=== PATIENT | female | born 1960 | race Caucasian/White ===

== ENCOUNTER 2019-11-02 08:19 | Day surgery (SDC) | payer OTHER ==
[2019-10-30 10:33] LABS: CARBON DIOXIDE,CO2 28.6 mmol/L (21.0-32.0); POTASSIUM,K 4.1 mmol/L (3.5-5.1)
[~2019-11-02 08:19] MED LIST: Dexamethasone 4 MG/ML 5 ML MDV ONE; Lactated Ringers 1,000 ML IV SCH; Lidocaine 2% 100 MG/5 ML Syringe ONE; Midazolam 1 MG/ML 2 ML SDV ONE; Ondansetron 4 MG/2 ML SDV ONE; Propofol 200 MG/20 ML SDV ONE; fentaNYL 250 MCG/5 ML SDV ONE
--- NOTE | 2019-11-02 09:07 | PCM.PREANE ---
Preanesthetic Assessment - Anesthesia/Transfusion/Family Hx Anesthesia History: Prior Anesthesia Without Reaction Family History of Anesthesia Reaction: No Transfusion History: No Prior Transfusion(s) - Review of Systems General: No Symptoms Pulmonary: No Symptoms Cardiovascular: No Symptoms Gastrointestinal: No Symptoms Neurological: No Symptoms Other: Reports: None - Physical Assessment NPO Status Date: 11/01/19 Height: 5 ft 3 in Weight: 72.121 kg ASA Class: 2 Mental Status: Alert & Oriented x3 Airway Class: Mallampati = 2 Dentition: Reports: Normal Dentition ROM/Head Extension: Full Lungs: Clear to Auscultation, Normal Respiratory Effort Cardiovascular: Regular Rate, Regular Rhythm - Lab Values: Laboratory Last Values WBC 6.14 K/uL (4.0-11.0) 10/30/19 09:45 RBC 4.42 M/uL (4.30-5.90) 10/30/19 09:45 Hgb 13.5 g/dL (12.0-16.0) 10/30/19 09:45 Hct 41.6 % (36.0-46.0) 10/30/19 09:45 MCV 94.1 fL (80.0-98.0) 10/30/19 09:45 MCH 30.5 pg (27.0-32.0) 10/30/19 09:45 MCHC 32.5 g/dL (31.0-37.0) 10/30/19 09:45 RDW Std Deviation 45.8 fl (28.0-62.0) 10/30/19 09:45 RDW Coeff of Yovani 13 % (11.0-15.0) 10/30/19 09:45 Plt Count 306 K/uL (150-400) 10/30/19 09:45 MPV 9.40 fL (7.40-12.00) 10/30/19 09:45 Nucleated RBC % 0.0 /100WBC 10/30/19 09:45 Nucleated RBCs # 0 K/uL 10/30/19 09:45 Sodium 140 mmol/L (136-145) 10/30/19 09:45 Potassium 4.1 mmol/L (3.5-5.1) 10/30/19 09:45 Chloride 104 mmol/L (98-107) 10/30/19 09:45 Carbon Dioxide 28.6 mmol/L (21.0-32.0) 10/30/19 09:45 BUN 23 mg/dL (7.0-18.0) H 10/30/19 09:45 Creatinine 1.0 mg/dL (0.6-1.0) 10/30/19 09:45 Est Cr Clr Drug Dosing 49.49 mL/min 10/30/19 09:45 Estimated GFR (MDRD) 56.6 ml/min 10/30/19 09:45 Glucose 81 mg/dL (74-106) 10/30/19 09:45 Calcium 9.0 mg/dL (8.5-10.1) 10/30/19 09:45 Hep C Ab Index (EFREM) 0.02 INDEX (<0.8) 10/30/19 09:45 Blood Type A POSITIVE 10/30/19 09:47 Antibody Screen NEGATIVE 10/30/19 09:47 - Allergies Allergies/Adverse Reactions: Allergies Allergy/AdvReac Type Severity Reaction Status Date / Time amoxicillin [Amoxicillin] Allergy Redness Verified 10/28/19 10:03 Sulfa (Sulfonamide Allergy Cannot Verified 10/28/19 10:03 Antibiotics) Remember - Blood Blood Available: No - Anesthesia Plan Pre-Op Medication Ordered: None - Acknowledgements Anesthesia Type Planned: General Anesthesia Pt an Appropriate Candidate for the Planned Anesthesia: Yes Alternatives and Risks of Anesthesia Discussed w Pt/Guardian: Yes Pt/Guardian Understands and Agrees with Anesthesia Plan: Yes Additional Comments: PMH: gerd, asthma, htn PLAN: ga PreAnesthesia Questionnaire HEENT History: Reports: Allergic Rhinitis Other HEENT History: wears glasses Cardiovascular History: Reports: High Cholesterol, Hypertension, Other (See Below) Other Cardiovascular History: states she has been told she has a "normal heart murmur" Respiratory History: Reports: Asthma Gastrointestinal History: Reports: GERD Genitourinary History: Reports: None MANAGER TITLE History: Reports: Musculoskeletal History: Reports: None Neurological History: Reports: None Psychiatric History: Reports: Anxiety, Depression Endocrine/Metabolic History: Reports: None Hematologic History: Reports: None Immunologic History: Reports: None Oncologic (Cancer) History: Reports: None Dermatologic History: Reports: None - Past Surgical History Head Surgeries/Procedures: Reports: None HEENT Surgical History: Reports: None Cardiovascular Surgical History: Reports: None Respiratory Surgical History: Reports: None GI Surgical History: Reports: Cholecystectomy, Hernia, Abdominal Female Surgical History: Reports: Breast Biopsy, Other (See Below) Other Female Surgeries/Procedures: hysteroscopy Endocrine Surgical History: Reports: Other (See Below) Other Endocrine Surgeries/Procedures: cyst removed from thyroid Neurological Surgical History: Reports: None Musculoskeletal Surgical History: Reports: Carpal Tunnel Oncologic Surgical History: Reports: None Dermatological Surgical History: Reports: None - SUBSTANCE USE Smoking Status *Q: Never Smoker Recreational Drug Use History: No - HOME MEDS Home Medications: Home Meds Calcium Carbonate [Calcium] 1 tab PO ASDIRECTED 11/23/13 [History] Fluticasone Propionate [Flonase] 1 spray INH DAILY PRN 11/23/13 [History] Multivitamin [Multi-Vitamin Daily] 1 tab PO DAILY 11/23/13 [History] Albuterol [Ventolin HFA] 2 puff INH ASDIRECTED PRN 10/28/19 [History] Cetirizine [ZyrTEC] 1 tab PO DAILY 10/28/19 [History] Flaxseed Oil [Flax Oil] 1 tab PO DAILY 10/28/19 [History] Fluticasone/Vilanterol [Breo Ellipta 100-25 MCG Inhalation Kit] 1 inhalation INH DAILY 10/28/19 [History] Montelukast [Singulair] 10 mg PO ASDIRECTED PRN 10/28/19 [History] Omeprazole Magnesium [Prilosec Otc] 1 tab PO ASDIRECTED PRN 10/28/19 [History] Rosuvastatin Calcium 5 mg PO DAILY 10/28/19 [History] Sertraline HCl 100 mg PO DAILY 10/28/19 [History] Sodium Bicarbonate/Sod Citrat [Randi-[place] Heartburn Tab Eff] 1 tab.chew CHEW ASDIRECTED PRN 10/28/19 [History] Vit A and D3 in Cod Liver Oil [Cod Liver Oil Softgel] 1 tab PO DAILY 10/28/19 [History] busPIRone HCl [Buspirone HCl] 0.5 tab PO BID 10/28/19 [History] - CURRENT (IN HOUSE) MEDS Current Meds: Current Medications Lactated Ringer's (Ringers, Lactated) 1,000 mls @ 100 mls/hr IV ASDIRECTED DIONTE Discontinued Medications Dexamethasone (Dexamethasone) Confirm Administered Dose 20 mg .ROUTE .STK-MED ONE Stop: 11/02/19 06:54 Fentanyl (Sublimaze) Confirm Administered Dose 250 mcg .ROUTE .STK-MED ONE Stop: 11/02/19 06:56 Lidocaine HCl (Xylocaine 2%) Confirm Administered Dose 100 mg .ROUTE .STK-MED ONE Stop: 11/02/19 06:54 Midazolam HCl (Versed 1 Mg/Ml) Confirm Administered Dose 2 mg .ROUTE .STK-MED ONE Stop: 11/02/19 06:54 Ondansetron HCl (Zofran) Confirm Administered Dose 4 mg .ROUTE .STK-MED ONE Stop: 11/02/19 06:54 Propofol (Diprivan 20 Ml) Confirm Administered Dose 200 mg .ROUTE .STK-MED ONE Stop: 11/02/19 06:54
[2019-11-02] MEDS ORDERED: Scopolamine 1.5 MG Transdermal Patch TRDERM PRN (09:10)
[2019-11-02] MEDS ORDERED: Fluorescein 5 ML Vial ONE (09:42)
[2019-11-02] MEDS ORDERED: Sugammadex Sodium 200 MG/2 ML VIAL ONE (10:23)
[2019-11-02] MEDS ORDERED: Ketamine 500 mg/10 ML MDV ONE (10:28)
[2019-11-02] MEDS ORDERED: Furosemide 40 MG/4 ML VIAL ONE (10:48)
[2019-11-02] MEDS ORDERED: Ondansetron 4 MG/2 ML SDV ONE (11:07)
[2019-11-02] MEDS ORDERED: fentaNYL 250 MCG/5 ML SDV ONE (11:07)
[2019-11-02] MEDS ORDERED: Ketorolac 30 MG/ML SDV ONE (11:07)
--- NOTE | 2019-11-02 12:38 | PCM.OPNOTE ---
- General Post-Op/Procedure Note Date of Surgery/Procedure: 11/02/19 Operative Procedure(s): total vaginal hysterectomy, anterior and posterior colporrhaphy, perineorrhaphy and vaginal vault suspension, cystoscopy Findings: 4th Degree uterine prolapse, 3rd degree rectocele, 3rd degree cystocele, on cystoscopy, normal bladder mucosa, copious flow of urine, bilateral ureteral orifices. Rectal exam normal at conclusion of the case. Pre Op Diagnosis: incomplete uterovaginal prolapse Post-Op Diagnosis: Same Anesthesia Technique: General ET Tube Primary Surgeon: Paradise Jeffries Secondary Surgeon: Carolyn Ruiz Anesthesia Provider: Mick Levin [employer] Worker: Lionel Ron Pathology: uterus and vaginal Fluid Replacement, Intraop: 2,000 EBL in mLs: 150 Complications: None Known Condition: Good
[2019-11-02] MEDS ORDERED: Ondansetron 4 MG/2 ML SDV IVPUSH PRN (12:39)
[2019-11-02] MEDS ORDERED: Ketorolac 30 MG/ML SDV IVPUSH PRN (12:39)
[2019-11-02] MEDS ORDERED: Acetaminophen/oxyCODONE 325-5 MG Tab PO PRN ×2 (12:39)
[2019-11-02] MEDS ORDERED: Promethazine 25 MG/ML SDV IM PRN (12:39)
[2019-11-02] MEDS ORDERED: Morphine 4 MG/ML Syringe IVPUSH PRN (12:39)
[2019-11-02] MEDS ORDERED: Non-Formulary Medication 1 Each (Montelukast [Singulair] 10 MG) PO PRN (12:41)
[2019-11-02] MEDS ORDERED: Non-Formulary Medication 1 Each (Fluticasone Propionate [Flonase] 1 SPRAY) INH PRN (12:41)
--- NOTE | 2019-11-02 15:29 | OR ---
SURGEON: Paradise Jeffries M.D. DATE OF PROCEDURE: 11/02/2019 PREOPERATIVE DIAGNOSIS: Incomplete uterovaginal prolapse. POSTOPERATIVE DIAGNOSIS: Incomplete uterovaginal prolapse. PROCEDURES: Total vaginal hysterectomy, anterior and posterior colporrhaphy, perineorrhaphy, vaginal vault suspension, cystoscopy. PRIMARY SURGEON: Paradise Jeffries MD. WEATHER STRIP INSTALLER: Carolyn Ruiz MD. ANESTHESIA: General endotracheal. ESTIMATED BLOOD LOSS: 150 mL. FLUIDS: 2000 mL crystalloid. FINDINGS: Uterus with fourth-degree prolapse, third-degree cystocele, third-degree rectocele. Upon cystoscopy, there was copious flow of bright green urine after fluorescein had been given from bilateral ureteral orifices. There was no evidence of any trauma to the bladder mucosa. Rectal examination at the conclusion of the case revealed no trauma and no sutures in the rectum. COMPLICATIONS: None known. DISPOSITION: Stable to Recovery. BRIEF HISTORY: This is a 59-year-old female. She was seen in July and was noted to have second to third-degree uterovaginal prolapse. It was discussed at the time of her appointment. In the meantime, she also noted some postmenopausal bleeding, but endometrial thickness was 3 mm. She has had several episodes of pain in her lower abdomen. She describes it as a twisting sensation. She now feels like the prolapse has gotten significantly worse with more pelvic pressure and pain and presented for further evaluation with findings as noted above. She was offered but declined a pessary. She requested definitive management with a total vaginal hysterectomy, anterior and posterior colporrhaphy, perineorrhaphy, vaginal vault suspension, and cystoscopy. Risks reviewed including bleeding; infection; injury to bowel, bladder, blood vessels, ureters, or other organs; risk of anesthesia; risk of thromboembolic event; risk of change in sexual function; risk of recurrence of 30% to 40%. Understanding all these risks, she does desire to proceed. DESCRIPTION OF PROCEDURE: With the patient in dorsal lithotomy position, under adequate general endotracheal anesthesia, the perineum and vagina were prepped with Betadine and draped in usual fashion for vaginal surgery. SCDs were in place. Gallardo catheter had been placed and she received 2 g of Ancef IV. After appropriate time-out was held and after the perineum was appropriately prepped and draped, bimanual examination revealed a 6-week size uterus with the cervix being at the introitus and just beyond third-degree cystocele, third-degree rectocele. Speculums were not required to start the case as the uterus was external. The cervix was grasped with a Claudia tenaculum and circumscribed using electrocautery. The vaginal mucosa was pushed away. Dissection was begun in the anterior cul-de-sac and progressing approximately 3 cm cephalad on the cervix. I had not yet been to the level of the peritoneal reflection. Therefore, I proceeded to attempt to enter the posterior cul-de-sac, again proceeding approximately 3 cm cephalad, still had not entered the peritoneum, and therefore the uterosacral ligaments were identified, cross clamped, cut, and ligated using a Maggi ligature of 2-0 Polysorb. An additional pedicles was taken on the right and the left, which was below the field of dissection and these were clamped with a Maggi clamp, cut, and ligated with a Maggi ligature of 2-0 Polysorb. The posterior cul-de-sac was then easily entered. A Fabio- Auvard speculum was placed posteriorly, a finger was placed anteriorly to guide the dissection to the anterior cul-de-sac. When the finger was brought down into the view, the peritoneum was identified and incised. The right angle retractor was then placed into the anterior cul-de-sac. Two additional pedicles were taken on the right and the left using a Maggi ligature, cutting, and 2-0 Polysorb in a Maggi ligature for ligating the pedicle. The remaining utero- ovarian ligaments were then cross-clamped, cut, and ligated using a free tie followed by Maggi ligature of 2-0 Polysorb. The uterus was delivered vaginally, sent for pathology. The tubes and ovaries were inspected and appeared normal and were released from the retained ligatures. The uterosacral ligament ligatures were retained as well. The lower portion of the anterior vagina had good rugation, so beginning approximately 3 cm cephalad from the urethral meatus, hydrodissection was performed. A midline incision was made. The vaginal mucosa was incised using Metzenbaum scissors. The muscularis layer was dissected free from the overlying vaginal mucosa and reapproximated in midline using multiple interrupted sutures of 2-0 Polysorb. Prior to proceeding with the anterior repair, cystoscopy was performed after the uterus had been removed identifying bilateral ureteral orifices with copious flow of urine which was bright green after fluorescein had been given. There was also no evidence of any trauma to the bladder mucosa. This being completed, I proceeded with the anterior colporrhaphy as described. The uterosacral ligaments were then identified, grasped with a Josh clamp and tacking the bowel out of the field and retracting the sigmoid, 3 sutures of 2-0 Ethibond were placed in the uterosacral ligaments on the right and the left. A single tie was placed and cystoscopy was again repeated and there was copious flow of bright green urine from bilateral ureteral orifices again with no trauma to the bladder mucosa. Therefore, the cystoscope was removed, the catheter was replaced. The ligatures were retained for placement into the muscularis layer. I then proceeded with the posterior colporrhaphy, proceeding with a slick-shaped incision in the perineum starting at the 5 and 7 o'clock positions of the perineum. This vulvar tissue and lower vaginal tissue were removed using Metzenbaum scissors. Hydrodissection was then performed posteriorly. A midline incision was made with Metzenbaum scissors undermining the vaginal mucosa to the apex. The muscularis layer was then dissected free. There was a very clear transverse defect in the muscularis layer and this was repaired using a running suture of 2- 0 Polysorb. This was really the source of the posterior defect; therefore, there were no lateral sutures placed. The retained ligatures that had been placed in the uterosacral ligaments were then placed through the upper portion of the muscularis layer of the posterior vagina at the apex and the other arm of each suture was placed through the muscularis layer of the apex anteriorly with the highest ligature being placed in the midline and the lowest being placed laterally. These ligatures were each tied and trimmed. The vaginal mucosa was then reapproximated using a running lock suture of 0 Polysorb. The retained uterosacral ligament ligatures were ligated in the midline beneath this closure which progressed to the perineum. The deep perineal tissue was then reapproximated in the midline using a deep suture of the 0 Polysorb with reapproximation of the skin occurring in this process. The suture was then trimmed. The vagina was packed with vaginal packing instilled with water-based lubricant. Final sponge, needle, and instrument counts were reported as correct. There were no known complications. The patient was transferred to Recovery in good condition. CHRISTIANO FRIAS /[id number]
[2019-11-02] MEDS ORDERED: Albuterol 0.083% 2.5 MG/3 ML Neb Soln NEB PRN (16:07)
--- NOTE | 2019-11-02 16:16 | PCM.SURGPN ---
- General Info Date of Service: 11/02/19 POD#: 0 Post-Op Diagnosis: incomplete uterovaginal prolapse. Functional Status: Reports: Pain Controlled - Review of Systems General: Reports: No Symptoms HEENT: Reports: No Symptoms Pulmonary: Reports: No Symptoms Cardiovascular: Reports: No Symptoms Gastrointestinal: Reports: No Symptoms Genitourinary: Reports: No Symptoms Musculoskeletal: Reports: No Symptoms Skin: Reports: No Symptoms Neurological: Reports: No Symptoms Psychiatric: Reports: No Symptoms - Patient Data Vitals - Most Recent: Last Vital Signs Temp 36.5 C 11/02/19 15:51 Pulse 63 11/02/19 15:51 Resp 16 11/02/19 15:51 BP 135/64 11/02/19 15:51 Pulse Ox 100 11/02/19 15:51 Weight - Most Recent: 72.121 kg I&O - Last 24 Hours: Intake & Output 11/02/19 11/02/19 11/02/19 06:59 14:59 22:59 Intake Total 4300 Output Total 400 Balance 3900 Med Orders - Current: Current Medications Albuterol (Proventil Neb Soln) 2.5 mg NEB Q4HRRT PRN PRN Reason: Shortness of Breath Lactated Ringer's (Ringers, Lactated) 1,000 mls @ 100 mls/hr IV ASDIRECTED DIONTE Last Admin: 11/02/19 09:07 Dose: 100 mls/hr Documented by: Ketorolac Tromethamine (Toradol) 30 mg IVPUSH Q6H PRN PRN Reason: Pain (severe 7-10) Stop: 11/07/19 12:39 Morphine Sulfate (Morphine) 4 mg IVPUSH Q2H PRN PRN Reason: Pain (severe 7-10) Non-Formulary Medication (Albuterol [Ventolin Hfa]) 2 puff INH ASDIRECTED PRN PRN Reason: Shortness of Breath Non-Formulary Medication (Buspirone Hcl) 0.5 tab PO BID DIONTE Non-Formulary Medication (Cetirizine [Zyrtec]) 1 tab PO DAILY DIONTE Non-Formulary Medication (Fluticasone Propionate [Flonase]) 1 spray INH DAILY PRN PRN Reason: sinus congestion Non-Formulary Medication (Fluticasone/Vilanterol) 1 inhalation INH DAILY DIONTE Non-Formulary Medication (Montelukast [Singulair]) 10 mg PO ASDIRECTED PRN PRN Reason: Allergies Non-Formulary Medication (Sertraline Hcl [Sertraline Hcl]) 100 mg PO DAILY DIONTE Ondansetron HCl (Zofran) 4 mg IVPUSH Q6H PRN PRN Reason: Nausea/Vomiting Oxycodone/Acetaminophen (Percocet 325-5 Mg) 1 tab PO Q4H PRN PRN Reason: Pain (moderate 4-6) Oxycodone/Acetaminophen (Percocet 325-5 Mg) 2 tab PO Q4H PRN PRN Reason: Pain (moderate 4-6) Last Admin: 11/02/19 14:51 Dose: 2 tab Documented by: Promethazine HCl (Phenergan) 25 mg IM Q6H PRN PRN Reason: Nausea/Vomiting Scopolamine (Transderm-Scop) 1.5 mg TRDERM Q72H PRN PRN Reason: Nausea/Vomiting Discontinued Medications Dexamethasone (Dexamethasone) Confirm Administered Dose 20 mg .ROUTE .STK-MED ONE Stop: 11/02/19 06:54 Fentanyl (Sublimaze) Confirm Administered Dose 250 mcg .ROUTE .STK-MED ONE Stop: 11/02/19 06:56 Fentanyl (Sublimaze) Confirm Administered Dose 250 mcg .ROUTE .STK-MED ONE Stop: 11/02/19 11:08 Fluorescein Sodium (Ak-Fluor) Confirm Administered Dose 5 ml .ROUTE .STK-MED ONE Stop: 11/02/19 09:43 Furosemide (Lasix) Confirm Administered Dose 40 mg .ROUTE .STK-MED ONE Stop: 11/02/19 10:49 Acetaminophen (Ofirmev) Confirm Administered Dose 100 mls @ as directed .ROUTE .STK-MED ONE Stop: 11/02/19 10:37 Ketamine HCl (Ketalar) Confirm Administered Dose 500 mg .ROUTE .STK-MED ONE Stop: 11/02/19 10:29 Ketorolac Tromethamine (Toradol) Confirm Administered Dose 30 mg .ROUTE .STK-MED ONE Stop: 11/02/19 11:08 Lidocaine HCl (Xylocaine 2%) Confirm Administered Dose 100 mg .ROUTE .STK-MED ONE Stop: 11/02/19 06:54 Midazolam HCl (Versed 1 Mg/Ml) Confirm Administered Dose 2 mg .ROUTE .STK-MED ONE Stop: 11/02/19 06:54 Ondansetron HCl (Zofran) Confirm Administered Dose 4 mg .ROUTE .STK-MED ONE Stop: 11/02/19 06:54 Ondansetron HCl (Zofran) Confirm Administered Dose 4 mg .ROUTE .STK-MED ONE Stop: 11/02/19 11:08 Propofol (Diprivan 20 Ml) Confirm Administered Dose 200 mg .ROUTE .STK-MED ONE Stop: 11/02/19 06:54 Sugammadex Sodium (Bridion) Confirm Administered Dose 200 mg .ROUTE .STK-MED ONE Stop: 11/02/19 10:24 - Exam General: Alert, Oriented Lungs: Clear to Auscultation, Normal Respiratory Effort (low respiratory effort due to medications.) Sepsis Event Note - Evaluation Sepsis Screening Result: No Definite Risk - Focused Exam Vital Signs: Vital Signs Temp Temp Pulse Resp BP Pulse Ox Pulse Ox 11/02/19 15:51 36.5 C 63 16 135/64 100 11/02/19 15:32 36.1 C 72 16 144/79 H 100 11/02/19 14:52 35.7 C L 91 16 133/72 100 11/02/19 14:43 100 11/02/19 14:39 36.1 C 67 16 140/74 100 11/02/19 14:00 35.9 C L 36.1 C 63 16 136/60 97 11/02/19 13:50 35.5 C L 65 14 144/61 H 10 L 11/02/19 13:25 71 22 H 138/61 100 11/02/19 13:20 61 16 129/63 96 11/02/19 13:15 68 14 126/65 95 11/02/19 13:10 77 14 124/60 96 11/02/19 13:05 78 15 125/61 95 11/02/19 13:00 86 14 122/58 L 96 11/02/19 12:55 64 13 132/62 98 11/02/19 12:50 61 14 127/63 98 11/02/19 12:45 69 10 L 114/63 97 11/02/19 12:40 84 14 129/73 98 11/02/19 12:35 36.2 C 82 10 L 154/74 H 100 11/02/19 09:00 35.8 C L 75 16 127/68 99 Date Exam was Performed: 11/02/19 Time Exam was Performed: 16:11 - Problem List & Annotations (1) Incomplete uterovaginal prolapse SNOMED Code(s): 638522661 Code(s): N81.2 - INCOMPLETE UTEROVAGINAL PROLAPSE Status: Acute Current Visit: Yes (2) Asthma SNOMED Code(s): 744699540 Code(s): J45.909 - UNSPECIFIED ASTHMA, UNCOMPLICATED Status: Acute Current Visit: Yes - Problem List Review Problem List Initiated/Reviewed/Updated: Yes - My Orders Last 24 Hours: Active Orders 24 hr Category Date Time Status Patient Status [ADT] Routine ADT 11/02/19 12:39 Active Antiembolic Devices [RC] PER UNIT ROUTINE Care 11/02/19 12:39 Active Notify Provider Intake and Out [RC] ASDIRECTED Care 11/02/19 12:39 Active Notify Provider Vital Signs [RC] ASDIRECTED Care 11/02/19 12:39 Active Oxygen Therapy [RC] ASDIRECTED Care 11/02/19 12:39 Active RT Aerosol Therapy [RC] ASDIRECTED Care 11/02/19 16:07 Active RT Incentive Spirometry [RC] Q2WA Care 11/02/19 12:39 Active RT Incentive Spirometry [RC] [facility] Care 11/02/19 16:08 Active Up With Assistance [RC] PER UNIT ROUTINE Care 11/02/19 12:39 Active Up ad Delmy [RC] PER UNIT ROUTINE Care 11/02/19 12:39 Active Urinary Catheter Removal [RC] Per Unit Routine Care 11/02/19 12:39 Active Vital Signs [RC] PER UNIT ROUTINE Care 11/02/19 12:39 Active Regular Diet [DIET] Diet 11/02/19 Dinner Active BASIC METABOLIC PANEL,BMP [CHEM] AM Lab 11/03/19 05:11 Ordered CBC WITH AUTO DIFF [HEME] AM Lab 11/03/19 05:11 Ordered HEMOGLOBIN/HEMATOCRIT,HH [HEME] Routine Lab 11/02/19 18:10 Ordered Acetaminophen/oxyCODONE [Percocet 325-5 MG] Med 11/02/19 12:39 Active 1 tab PO Q4H PRN Acetaminophen/oxyCODONE [Percocet 325-5 MG] Med 11/02/19 12:39 Active 2 tab PO Q4H PRN Albuterol [Proventil Neb Soln] Med 11/02/19 16:07 Active 2.5 mg NEB Q4HRRT PRN Albuterol [Ventolin HFA] Med 11/02/19 12:41 Active 2 puff INH ASDIRECTED PRN Cetirizine [ZyrTEC] Med 11/03/19 09:00 Active 1 tab PO DAILY Fluticasone Propionate [Flonase] Med 11/02/19 12:41 Active 1 spray INH DAILY PRN Fluticasone/Vilanterol Med 11/03/19 09:00 Active 1 inhalation INH DAILY Ketorolac [Toradol] Med 11/02/19 12:39 Active 30 mg IVPUSH Q6H PRN Lactated Ringers [Ringers, Lactated] 1,000 ml Med 11/02/19 05:45 Active IV ASDIRECTED Montelukast [Singulair] Med 11/02/19 12:41 Active 10 mg PO ASDIRECTED PRN Morphine Med 11/02/19 12:39 Active 4 mg IVPUSH Q2H PRN Ondansetron [Zofran] Med 11/02/19 12:39 Active 4 mg IVPUSH Q6H PRN Promethazine [Phenergan] Med 11/02/19 12:39 Active 25 mg IM Q6H PRN Scopolamine [Transderm-Scop] Med 11/02/19 09:10 Active 1.5 mg TRDERM Q72H PRN Sertraline HCl [Sertraline HCl] Med 11/03/19 09:00 Active 100 mg PO DAILY busPIRone HCl Med 11/02/19 21:00 Active 0.5 tab PO BID lisinopriL Med 11/02/19 12:45 Unverified DOSE UNIT RTE FREQ Peripheral IV Discontinue [OM.PC] Routine Oth 11/02/19 12:39 Ordered Remove Vaginal Packing [OM.PC] Per Unit Routine Oth 11/02/19 12:40 Ordered Sequential Compression Device [OM.PC] Per Unit Routine Oth 11/02/19 12:39 Ordered Resuscitation Status Routine Resus Stat 11/02/19 12:39 Ordered Medication Orders Albuterol (Proventil Neb Soln) 2.5 mg NEB Q4HRRT PRN PRN Reason: Shortness of Breath Lactated Ringer's (Ringers, Lactated) 1,000 mls @ 100 mls/hr IV ASDIRECTED DIONTE Last Admin: 11/02/19 09:07 Dose: 100 mls/hr Documented by: LÓPEZ Ketorolac Tromethamine (Toradol) 30 mg IVPUSH Q6H PRN PRN Reason: Pain (severe 7-10) Stop: 11/07/19 12:39 Morphine Sulfate (Morphine) 4 mg IVPUSH Q2H PRN PRN Reason: Pain (severe 7-10) Non-Formulary Medication (Albuterol [Ventolin Hfa]) 2 puff INH ASDIRECTED PRN PRN Reason: Shortness of Breath Non-Formulary Medication (Buspirone Hcl) 0.5 tab PO BID DIONTE Non-Formulary Medication (Cetirizine [Zyrtec]) 1 tab PO DAILY DIONTE Non-Formulary Medication (Fluticasone Propionate [Flonase]) 1 spray INH DAILY PRN PRN Reason: sinus congestion Non-Formulary Medication (Fluticasone/Vilanterol) 1 inhalation INH DAILY DIONTE Non-Formulary Medication (Montelukast [Singulair]) 10 mg PO ASDIRECTED PRN PRN Reason: Allergies Non-Formulary Medication (Sertraline Hcl [Sertraline Hcl]) 100 mg PO DAILY DIONTE Ondansetron HCl (Zofran) 4 mg IVPUSH Q6H PRN PRN Reason: Nausea/Vomiting Oxycodone/Acetaminophen (Percocet 325-5 Mg) 1 tab PO Q4H PRN PRN Reason: Pain (moderate 4-6) Oxycodone/Acetaminophen (Percocet 325-5 Mg) 2 tab PO Q4H PRN PRN Reason: Pain (moderate 4-6) Last Admin: 11/02/19 14:51 Dose: 2 tab Documented by: URIEL Promethazine HCl (Phenergan) 25 mg IM Q6H PRN PRN Reason: Nausea/Vomiting Scopolamine (Transderm-Scop) 1.5 mg TRDERM Q72H PRN PRN Reason: Nausea/Vomiting - Assessment Assessment (Free Text/Narrative):: POD0 after TVH/anterior and posterior colporrhaphy and vault suspension. Pain is well controlled, denies nausea. She is very drowsy, when sleeping, O2 sats drop into the 80's recovering immediately upon deep inspiration, not tachycardia. - Plan Plan (Free Text/Narrative):: Continue postop care, stop fluids, start IS, and start nebulizers, check H&H tonight.
[2019-11-02] MEDS ORDERED: SERTRALINE HCL 100 MG PO SCH (21:00)
[2019-11-02] MEDS ORDERED: BUSPIRONE HCL PO SCH (21:00)
[2019-11-02] MEDS ORDERED: Sertraline 100 MG Tab**OWN MED PO SCH (21:21)
[2019-11-02] MEDS ORDERED: BUSPIRONE 15 MG PO SCH (21:30)
[2019-11-03 04:47] VITALS: BP 120/50; PULSE 66
[2019-11-03 06:19] LABS: CARBON DIOXIDE,CO2 28.7 mmol/L (21.0-32.0); POTASSIUM,K 4.8 mmol/L (3.5-5.1)
--- NOTE | 2019-11-03 08:28 | PCM.SURGPN ---
- General Info Date of Service: 11/03/19 Date of Surgery/Procedure: 11/02/19 POD#: 1 Post-Op Diagnosis: uterovaginal prolapse Functional Status: Reports: Pain Controlled, Tolerating Diet, Ambulating, Urinating (packing out this am, tolerating diet, ambulating, no further shortness of breath, normal oxygen sat on room air through the night. ) - Review of Systems General: Reports: No Symptoms HEENT: Reports: No Symptoms Pulmonary: Reports: No Symptoms Cardiovascular: Reports: No Symptoms Gastrointestinal: Reports: No Symptoms Genitourinary: Reports: No Symptoms Musculoskeletal: Reports: No Symptoms Skin: Reports: No Symptoms Neurological: Reports: No Symptoms Psychiatric: Reports: No Symptoms - Patient Data Vitals - Most Recent: Last Vital Signs Temp 36.8 C 11/03/19 04:45 Pulse 66 11/03/19 04:45 Resp 16 11/03/19 04:45 BP 120/50 L 11/03/19 04:45 Pulse Ox 98 11/03/19 04:45 Weight - Most Recent: 72.121 kg I&O - Last 24 Hours: Intake & Output 11/02/19 11/03/19 11/03/19 22:59 06:59 14:59 Intake Total 464 770 Output Total 300 550 Balance 164 220 Lab Results Last 24 Hrs: Laboratory Results - last 24 hr 11/02/19 11/03/19 11/03/19 Range/Units 18:20 05:14 05:14 WBC 12.59 H (4.0-11.0) K/uL RBC 3.93 L (4.30-5.90) M/uL Hgb 12.0 11.7 L (12.0-16.0) g/dL Hct 36.6 36.5 (36.0-46.0) % MCV 92.9 (80.0-98.0) fL MCH 29.8 (27.0-32.0) pg MCHC 32.1 (31.0-37.0) g/dL RDW Std Deviation 44.3 (28.0-62.0) fl RDW Coeff of Yovani 13 (11.0-15.0) % Plt Count 326 (150-400) K/uL MPV 9.80 (7.40-12.00) fL Neut % (Auto) 81.1 H (48.0-80.0) % Lymph % (Auto) 11.4 L (16.0-40.0) % Gregg % (Auto) 7.5 (0.0-15.0) % Eos % (Auto) 0.0 (0.0-7.0) % Baso % (Auto) 0.0 (0.0-1.5) % Neut # (Auto) 10.2 H (1.4-5.7) K/uL Lymph # (Auto) 1.4 (0.6-2.4) K/uL Gregg # (Auto) 1.0 H (0.0-0.8) K/uL Eos # (Auto) 0.0 (0.0-0.7) K/uL Baso # (Auto) 0.0 (0.0-0.1) K/uL Nucleated RBC % 0.0 /100WBC Nucleated RBCs # 0 K/uL Sodium 137 (136-145) mmol/L Potassium 4.8 (3.5-5.1) mmol/L Chloride 101 (98-107) mmol/L Carbon Dioxide 28.7 (21.0-32.0) mmol/L BUN 18 (7.0-18.0) mg/dL Creatinine 1.1 H (0.6-1.0) mg/dL Est Cr Clr Drug Dosing 44.99 mL/min Estimated GFR (MDRD) 50.7 ml/min Glucose 102 (74-106) mg/dL Calcium 8.5 (8.5-10.1) mg/dL Med Orders - Current: Current Medications Albuterol (Proventil Neb Soln) 2.5 mg NEB Q4HRRT PRN PRN Reason: Shortness of Breath Last Admin: 11/02/19 16:17 Dose: 2.5 mg Documented by: Lactated Ringer's (Ringers, Lactated) 1,000 mls @ 100 mls/hr IV ASDIRECTED [facility] Last Admin: 11/02/19 09:07 Dose: 100 mls/hr Documented by: Ketorolac Tromethamine (Toradol) 30 mg IVPUSH Q6H PRN PRN Reason: Pain (severe 7-10) Stop: 11/07/19 12:39 Morphine Sulfate (Morphine) 4 mg IVPUSH Q2H PRN PRN Reason: Pain (severe 7-10) Non-Formulary Medication (Albuterol [Ventolin Hfa]) 2 puff INH ASDIRECTED PRN PRN Reason: Shortness of Breath Non-Formulary Medication (Cetirizine [Zyrtec]) 1 tab PO DAILY [facility] Non-Formulary Medication (Fluticasone Propionate [Flonase]) 1 spray INH DAILY PRN PRN Reason: sinus congestion Last Admin: 11/02/19 23:17 Dose: 1 spray Documented by: Non-Formulary Medication (Montelukast [Singulair]) 10 mg PO ASDIRECTED PRN PRN Reason: Allergies Ondansetron HCl (Zofran) 4 mg IVPUSH Q6H PRN PRN Reason: Nausea/Vomiting Oxycodone/Acetaminophen (Percocet 325-5 Mg) 1 tab PO Q4H PRN PRN Reason: Pain (moderate 4-6) Oxycodone/Acetaminophen (Percocet 325-5 Mg) 2 tab PO Q4H PRN PRN Reason: Pain (moderate 4-6) Last Admin: 11/02/19 14:51 Dose: 2 tab Documented by: Patient's Own MedicationBreo Ellipta 100/25 Mcg 1 each INH DAILY [facility] Patient's Own Medication Buspirone 15 Mg 0.5 each PO BID [facility] Last Admin: 11/02/19 22:21 Dose: 0.5 each Documented by: Promethazine HCl (Phenergan) 25 mg IM Q6H PRN PRN Reason: Nausea/Vomiting Scopolamine (Transderm-Scop) 1.5 mg TRDERM Q72H PRN PRN Reason: Nausea/Vomiting Sertraline HCl (Zoloft) 100 mg PO BEDTIME [facility] Discontinued Medications Dexamethasone (Dexamethasone) Confirm Administered Dose 20 mg .ROUTE .STK-MED ONE Stop: 11/02/19 06:54 Fentanyl (Sublimaze) Confirm Administered Dose 250 mcg .ROUTE .STK-MED ONE Stop: 11/02/19 06:56 Fentanyl (Sublimaze) Confirm Administered Dose 250 mcg .ROUTE .STK-MED ONE Stop: 11/02/19 11:08 Fluorescein Sodium (Ak-Fluor) Confirm Administered Dose 5 ml .ROUTE .STK-MED ONE Stop: 11/02/19 09:43 Furosemide (Lasix) Confirm Administered Dose 40 mg .ROUTE .STK-MED ONE Stop: 11/02/19 10:49 Acetaminophen (Ofirmev) Confirm Administered Dose 100 mls @ as directed .ROUTE .STK-MED ONE Stop: 11/02/19 10:37 Ketamine HCl (Ketalar) Confirm Administered Dose 500 mg .ROUTE .STK-MED ONE Stop: 11/02/19 10:29 Ketorolac Tromethamine (Toradol) Confirm Administered Dose 30 mg .ROUTE .STK-MED ONE Stop: 11/02/19 11:08 Lidocaine HCl (Xylocaine 2%) Confirm Administered Dose 100 mg .ROUTE .STK-MED ONE Stop: 11/02/19 06:54 Midazolam HCl (Versed 1 Mg/Ml) Confirm Administered Dose 2 mg .ROUTE .STK-MED ONE Stop: 11/02/19 06:54 Non-Formulary Medication (Buspirone Hcl) 0.5 tab PO BID [facility] Last Admin: 11/02/19 22:56 Dose: Not Given Documented by: Non-Formulary Medication (Sertraline Hcl [Sertraline Hcl]) 100 mg PO BEDTIME [facility] Last Admin: 11/02/19 22:57 Dose: Not Given Documented by: Ondansetron HCl (Zofran) Confirm Administered Dose 4 mg .ROUTE .STK-MED ONE Stop: 11/02/19 06:54 Ondansetron HCl (Zofran) Confirm Administered Dose 4 mg .ROUTE .STK-MED ONE Stop: 11/02/19 11:08 Propofol (Diprivan 20 Ml) Confirm Administered Dose 200 mg .ROUTE .STK-MED ONE Stop: 11/02/19 06:54 Sugammadex Sodium (Bridion) Confirm Administered Dose 200 mg .ROUTE .STK-MED ONE Stop: 11/02/19 10:24 - Exam General: Alert HEENT: Pupils Equal Lungs: Normal Respiratory Effort GI/Abdominal Exam: Soft, Non-Tender, No Distention Extremities: Normal Inspection, Non-Tender, No Pedal Edema Skin: Warm, Dry, Intact Psy/Mental Status: Alert, Normal Affect, Normal Mood Sepsis Event Note - Evaluation Sepsis Screening Result: No Definite Risk - Focused Exam Vital Signs: Vital Signs Temp Pulse Resp BP Pulse Ox 11/03/19 04:45 36.8 C 66 16 120/50 L 98 11/02/19 23:18 37.1 C 74 16 115/50 L 98 11/02/19 20:32 36.2 C 67 16 138/59 L 99 Date Exam was Performed: 11/03/19 Time Exam was Performed: 08:25 - Problem List & Annotations (1) Incomplete uterovaginal prolapse SNOMED Code(s): 530368063 Code(s): N81.2 - INCOMPLETE UTEROVAGINAL PROLAPSE Status: Acute Current Visit: Yes (2) Asthma SNOMED Code(s): 894357159 Code(s): J45.909 - UNSPECIFIED ASTHMA, UNCOMPLICATED Status: Acute Current Visit: Yes Qualifiers: Asthma severity: mild Asthma persistence: intermittent - Problem List Review Problem List Initiated/Reviewed/Updated: Yes - My Orders Last 24 Hours: Active Orders 24 hr Category Date Time Status Patient Status [ADT] Routine ADT 11/02/19 12:39 Active Antiembolic Devices [RC] PER UNIT ROUTINE Care 11/02/19 12:39 Active Communication Order [RC] ROUTINE Care 11/02/19 16:42 Active Notify Provider Intake and Out [RC] ASDIRECTED Care 11/02/19 12:39 Active Notify Provider Vital Signs [RC] ASDIRECTED Care 11/02/19 12:39 Active Oxygen Therapy [RC] ASDIRECTED Care 11/02/19 12:39 Active RT Aerosol Therapy [RC] ASDIRECTED Care 11/02/19 16:07 Active RT Incentive Spirometry [RC] Q2HWA Care 11/02/19 16:08 Active Ready for Discharge [RC] PER UNIT ROUTINE Care 11/03/19 08:25 Ordered Up With Assistance [RC] PER UNIT ROUTINE Care 11/02/19 12:39 Active Up ad Delmy [RC] PER UNIT ROUTINE Care 11/02/19 12:39 Active Urinary Catheter Removal [RC] Per Unit Routine Care 11/02/19 12:39 Active Vital Signs [RC] PER UNIT ROUTINE Care 11/02/19 12:39 Active Regular Diet [DIET] Diet 11/02/19 Dinner Active Acetaminophen/oxyCODONE [Percocet 325-5 MG] Med 11/02/19 12:39 Active 1 tab PO Q4H PRN Acetaminophen/oxyCODONE [Percocet 325-5 MG] Med 11/02/19 12:39 Active 2 tab PO Q4H PRN Albuterol [Proventil Neb Soln] Med 11/02/19 16:07 Active 2.5 mg NEB Q4HRRT PRN Albuterol [Ventolin HFA] Med 11/02/19 12:41 Active 2 puff INH ASDIRECTED PRN Cetirizine [ZyrTEC] Med 11/03/19 09:00 Active 1 tab PO DAILY Fluticasone Propionate [Flonase] Med 11/02/19 12:41 Active 1 spray INH DAILY PRN Ketorolac [Toradol] Med 11/02/19 12:39 Active 30 mg IVPUSH Q6H PRN Montelukast [Singulair] Med 11/02/19 12:41 Active 10 mg PO ASDIRECTED PRN Morphine Med 11/02/19 12:39 Active 4 mg IVPUSH Q2H PRN Ondansetron [Zofran] Med 11/02/19 12:39 Active 4 mg IVPUSH Q6H PRN Patient's Own Medication [Ptom] Med 11/02/19 21:30 Active 0.5 each PO BID Patient's Own Medication [Ptom] Med 11/03/19 09:00 Active 1 each INH DAILY Promethazine [Phenergan] Med 11/02/19 12:39 Active 25 mg IM Q6H PRN Scopolamine [Transderm-Scop] Med 11/02/19 09:10 Active 1.5 mg TRDERM Q72H PRN Sertraline [Zoloft] Med 11/02/19 21:21 Active 100 mg PO BEDTIME lisinopriL Med 11/02/19 12:45 Unverified DOSE UNIT RTE FREQ Peripheral IV Discontinue [OM.PC] Routine Oth 11/02/19 12:39 Ordered Remove Vaginal Packing [OM.PC] Per Unit Routine Oth 11/02/19 12:40 Ordered Sequential Compression Device [OM.PC] Per Unit Routine Oth 11/02/19 12:39 Ordered Resuscitation Status Routine Resus Stat 11/02/19 12:39 Ordered Medication Orders Albuterol (Proventil Neb Soln) 2.5 mg NEB Q4HRRT PRN PRN Reason: Shortness of Breath Last Admin: 11/02/19 16:17 Dose: 2.5 mg Documented by: REJI Lactated Ringer's (Ringers, Lactated) 1,000 mls @ 100 mls/hr IV ASDIRECTED [facility] Last Admin: 11/02/19 09:07 Dose: 100 mls/hr Documented by: LÓPEZ Ketorolac Tromethamine (Toradol) 30 mg IVPUSH Q6H PRN PRN Reason: Pain (severe 7-10) Stop: 11/07/19 12:39 Morphine Sulfate (Morphine) 4 mg IVPUSH Q2H PRN PRN Reason: Pain (severe 7-10) Non-Formulary Medication (Albuterol [Ventolin Hfa]) 2 puff INH ASDIRECTED PRN PRN Reason: Shortness of Breath Non-Formulary Medication (Cetirizine [Zyrtec]) 1 tab PO DAILY [facility] Non-Formulary Medication (Fluticasone Propionate [Flonase]) 1 spray INH DAILY PRN PRN Reason: sinus congestion Last Admin: 11/02/19 23:17 Dose: 1 spray Documented by: KATLIN Non-Formulary Medication (Montelukast [Singulair]) 10 mg PO ASDIRECTED PRN PRN Reason: Allergies Ondansetron HCl (Zofran) 4 mg IVPUSH Q6H PRN PRN Reason: Nausea/Vomiting Oxycodone/Acetaminophen (Percocet 325-5 Mg) 1 tab PO Q4H PRN PRN Reason: Pain (moderate 4-6) Oxycodone/Acetaminophen (Percocet 325-5 Mg) 2 tab PO Q4H PRN PRN Reason: Pain (moderate 4-6) Last Admin: 11/02/19 14:51 Dose: 2 tab Documented by: URIEL Patient's Own MedicationBreo Ellipta 100/25 Mcg 1 each INH DAILY [facility] Patient's Own Medication Buspirone 15 Mg 0.5 each PO BID [facility] Last Admin: 11/02/19 22:21 Dose: 0.5 each Documented by: KATLIN Promethazine HCl (Phenergan) 25 mg IM Q6H PRN PRN Reason: Nausea/Vomiting Scopolamine (Transderm-Scop) 1.5 mg TRDERM Q72H PRN PRN Reason: Nausea/Vomiting Sertraline HCl (Zoloft) 100 mg PO BEDTIME [facility] - Assessment Assessment (Free Text/Narrative):: POD#1 after TVH with A&P repair and vaginal vault suspension. Pain well controlled, tolerating diet, packing and catheter out this am, voided without difficulty. Ready for discharge. - Plan Plan (Free Text/Narrative):: Discharge precautions reviewed, Dismiss to home.
--- NOTE | 2019-11-03 08:43 | PCM48HPAN ---
Post Anesthesia Note - EVALUATION WITHIN 48HRS OF ANESTHETIC Vital Signs in Normal Range: Yes Patient Participated in Evaluation: Yes Respiratory Function Stable: Yes Airway Patent: Yes Cardiovascular Function Stable: Yes Hydration Status Stable: Yes Pain Control Satisfactory: Yes Nausea and Vomiting Control Satisfactory: Yes Mental Status Recovered: Yes Vital Signs: Last Vital Signs Temp 98.3 F 11/03/19 04:45 Pulse 66 11/03/19 04:45 Resp 16 11/03/19 04:45 BP 120/50 L 11/03/19 04:45 Pulse Ox 98 11/03/19 04:45 - COMMENTS/OBSERVATIONS Free Text/Narrative:: Patients reports feeling good this morning. Reported feeling sore. Reported some weird dreams over night, talked with the patient about the effects of ketamine and "weird dreams" can be a part fo that, but that the ketamine can help with her pain control post operatively.
[2019-11-03] MEDS ORDERED: CETIRIZINE PO SCH (09:00)
[2019-11-03] MEDS ORDERED: BREO ELLIPTA INH SCH (09:00)
== END 2019-11-03 11:15 | disposition home or self-care (01) ==
LOC: MW.SDS 08:19 → MW.MS 13:51 → MW.SDS 11-03 11:15
PROVIDERS: ATTEND Obstetrics & Gynecology
DX: N81.3 Complete uterovaginal prolapse (principal); E78.00 Pure hypercholesterolemia, unspecified; I10 Essential (primary) hypertension; J45.909 Unspecified asthma, uncomplicated; K21.9 Gastro-esophageal reflux disease without esophagitis; F41.9 Anxiety disorder, unspecified; F32.9 Major depressive disorder, single episode, unspecified; Z88.0 Allergy status to penicillin; Z88.2 Allergy status to sulfonamides; Z79.899 Other long term (current) drug therapy; Z98.890 Other specified postprocedural states; Z88.8 Allergy status to other drugs, medicaments and biological substances
CPT/HCPCS: 36415; 57260; 57283; 58260; 80048; 85014; 85018; 85025; 85027; 86803; 86850; 86900; 86901; 88307; 94640; A9270; J0131; J1100; J1940; J2001; J2250; J2704; J3010; J3490; J7120; 00944; J1885; J2405